=== PATIENT | female | born 1985 | race Caucasian/White ===

== ENCOUNTER 2023-07-01 19:07 | Emergency (ER) | payer BC ==
[~2023-07-01] VITALS: Ht 175.3 cm; Wt 90.7 kg
[2023-07-01 19:43] VITALS: O2SAT 98
== END 2023-07-01 21:36 | disposition home or self-care (01) ==
LOC: ER 19:07
DX: Z00.00 Encounter for general adult medical examination without abnormal findings (principal)
CPT/HCPCS: A4606; A4663